=== PATIENT | female | born 1990 ===

== ENCOUNTER 2017-11-12 11:12 | Emergency (ER) | payer MEDICAID ==
[2017-11-12 11:25] VITALS: RESP 18; TEMP 98.2
[2017-11-12 11:31] VITALS: BMI 30.2
--- NOTE | 2017-11-12 11:31 | ED PDOC ---
Arrival/HPI - General Time Seen by Provider: 11/12/17 11:15 Historian: Patient - History of Present Illness Narrative History of Present Illness (Text): 11/12/17 12:00 27 year old female, whose PMH includes hyperthyroidism, asthma, depression, and hernia, who presents to the emergency department complaining of worsening discomfort with umbilical hernia that has been gradually growing. Patient associates her symptom with nausea and diarrhea and the pain is worse with movement. Patient notes 10 months ago she was scheduled for surgery to remove the hernia, but they found out she was . She states her LMP was 2 days ago and her last BM was today, non dark, non bloody. Her BM was after her pain occured Patient denies fever, shortness of breath, chest pain, dizziness, vomiting, dysuria, or other complaints. Patient denies any SI or HI. PMD: None Surgeon: None in the area 11/12/17 15:35 Symptom Onset: Gradual Symptom Course: Worsening Activities at Onset: Rest Context: Home Past Medical History - Provider Review Nursing Documentation Reviewed: Yes Family/Social History - Physician Review Nursing Documentation Reviewed: Yes Family/Social History: Unknown Family HX Allergies/Home Meds Allergies/Adverse Reactions: Allergies No Known Allergies Allergy (Verified 11/12/17 12:04) Home Medications: Home Meds Medication Instructions Recorded Confirmed Gabapentin [Neurontin] 100 mg PO DAILY 11/12/17 11/12/17 Gabapentin [Neurontin] 200 mg PO DIN 11/12/17 11/12/17 Gabapentin [Neurontin] 200 mg PO HS 11/12/17 11/12/17 Sertraline [Zoloft] 100 mg PO DAILY 11/12/17 11/12/17 lamoTRIgine [Lamictal] 75 mg PO DAILY 11/12/17 11/12/17 Review of Systems - Review of Systems Constitutional: absent: Fevers Respiratory: absent: SOB Cardiovascular: absent: Chest Pain Gastrointestinal: Abdominal Pain (umbilical hernia ), Diarrhea, Nausea. absent : Vomiting Genitourinary Female: absent: Dysuria Musculoskeletal: absent: Back Pain Skin: absent: Rash Neurological: absent: Headache, Dizziness Endocrine: absent: Diaphoresis Physical Exam Vital Signs Reviewed: Yes Vital Signs Temp Pulse Resp BP Pulse Ox 11/12/17 14:13 69 18 135/69 99 11/12/17 12:42 75 18 138/74 99 11/12/17 11:24 98.2 F 78 18 141/87 99 Temperature: Afebrile Blood Pressure: Normal Pulse: Regular Respiratory Rate: Normal Appearance: Positive for: Well-Appearing, Non-Toxic, Comfortable Pain Distress: None Mental Status: Positive for: Alert and Oriented X 3 - Systems Exam Head: Present: Atraumatic, Normocephalic Pupils: Present: PERRL Extroacular Muscles: Present: EOMI Conjunctiva: Present: Normal Respiratory/Chest: Present: Clear to Auscultation, Good Air Exchange. No: Respiratory Distress, Accessory Muscle Use, Wheezes, Rales, Retracting, Rhonchi Cardiovascular: Present: Regular Rate and Rhythm, Normal S1, S2. No: Murmurs Abdomen: Present: Normal Bowel Sounds, Hernias (reducible umbilical hernia, no erythema or skin changes). No: Tenderness, Distention, Peritoneal Signs, Rebound, Guarding Neurological: Present: GCS=15, CN II-XII Intact, Speech Normal Skin: Present: Warm, Dry, Normal Color. No: Rashes Psychiatric: Present: Alert, Oriented x 3, Normal Insight, Normal Concentration Medical Decision Making ED Course and Treatment: 11/12/17 Impression: 27 year old female with reducible umbilical hernia complaining of worsening and growing hernia since over 10 months ago. Easily reducible hernia w/ out vomiting , constipation. No indication of strangulated or incarcerated hernia. Will likely image for surgical followup. Plan: -- Labs -- CT abdomen and pelvis -- Reassess and disposition Progress Notes: Labs largely unremarkable Pain improved, no pain free, tolerating clears, no vomiting. CT w/ fat hernia @ 25mm. Given return indications, discs and followup 11/12/17 15:39 - Lab Interpretations Lab Results: 11/12/17 12:45 11/12/17 12:45 Lab Results 11/12/17 12:45: Lactic Acid 0.9 11/12/17 12:45: Sodium 142, Potassium 4.7, Chloride 104, Carbon Dioxide 25, Anion Gap 18, BUN 12, Creatinine 0.6 L, Est GFR ( Amer) > 60, Est GFR ( Non-Af Amer) > 60, Random Glucose 93, Calcium 9.7, Total Bilirubin 0.5, AST 34, ALT 29, Alkaline Phosphatase 82, Total Protein 8.7 H, Albumin 4.9 H, Globulin 3.8, Albumin/Globulin Ratio 1.3, Lipase 78 11/12/17 12:45: WBC 8.0, RBC 4.84, Hgb 14.4, Hct 43.3, MCV 89.5, MCH 29.8, MCHC 33.3, RDW 13.2, Plt Count 286, MPV 10.1, Gran % 58.0, Lymph % (Auto) 33.3, [place] % (Auto) 6.2 H, Eos % (Auto) 2.0, Baso % (Auto) 0.5, Gran # 4.61, Lymph # (Auto ) 2.7, [place] # (Auto) 0.5, Eos # (Auto) 0.2, Baso # (Auto) 0.04 I have reviewed the lab results: Yes - RAD Interpretation Radiology Orders: 11/12/17 12:10 ABD PELVIS PO & IV CONTRAST [CT] Stat Septic Tank Servicer: Radiologist - Medication Orders Current Medication Orders: Sodium Chloride (Sodium Chloride 0.9%) 1,000 mls @ 100 mls/hr IV .Q10H KENROY Last Admin: 11/12/17 12:24 Dose: 100 mls/hr eMAR Start Stop Document 11/12/17 12:24 LA (Rec: 11/12/17 12:25 LA [id number]) Intravenous Solution Start Date 11/12/17 Start Time 12:24 Discontinued Medications Ibuprofen (Motrin Tab) 600 mg PO STAT STA Stop: 11/12/17 12:11 Last Admin: 11/12/17 12:24 Dose: 600 mg MAR Pain/Vitals Document 11/12/17 12:24 LA (Rec: 11/12/17 12:24 LA [id number]) Pain Reassessment Is This A Pain ReAssessment? No Sleep Is patient sleeping during reassessment? No Presence of Pain Presence of Pain Yes Pain Scale Used Pain Scale Used Numeric Location Pain Location Body Site Abdomen Description Constant Intensity 3 Scale Used Numeric Ondansetron HCl (Zofran Inj) 4 mg IVP STAT STA Stop: 11/12/17 12:10 Last Admin: 11/12/17 12:24 Dose: 4 mg IVP Administration Document 11/12/17 12:24 LA (Rec: 11/12/17 12:24 LA [id number]) Charges for Administration # of IVP Administrations 1 - Scribe Statement The provider has reviewed the documentation as recorded by the Kyree Harry Provider Srinie Attestation: All medical record entries made by the Elisabetibe were at my direction and personally dictated by me. I have reviewed the chart and agree that the record accurately reflects my personal performance of the history, physical exam, medical decision making, and the department course for this patient. I have also personally directed, reviewed, and agree with the discharge instructions and disposition. Disposition/Present on Arrival - Present on Arrival Any Indicators Present on Arrival: No History of DVT/PE: No History of Uncontrolled Diabetes: No Urinary Catheter: No History of Decub. Ulcer: No History Surgical Site Infection Following: None - Disposition Have Diagnosis and Disposition been Completed?: Yes Diagnosis: Umbilical hernia Disposition: HOME/ ROUTINE Disposition Time: 15:00 Patient Plan: Discharge Condition: GOOD Additional Instructions: FOLLOW UP WITH YOUR PRIMARY CARE DOCTOR AND THE SURGICAL DOCTOR. KRZYSZTOF SHEPHERD, thank you for letting us take care of you today. Your provider was Juan Jiménez and you were treated for HERNIA. The emergency medical care you received today was directed at your acute symptoms. If you were prescribed any medication, please fill it and take as directed. It may take several days for your symptoms to resolve. Return to the Emergency Department if your symptoms worsen, do not improve, or if you have any other problems. Please contact your doctor or call one of the physicians/clinics you have been referred to that are listed on the Patient Visit Information form that is included in your discharge packet. Bring any paperwork you were given at discharge with you along with any medications you are taking to your follow up visit. Our treatment cannot replace ongoing medical care by a primary care provider outside of the emergency department. Thank you for allowing the [facility] hospital team to be part of your care today. If you had an X-Ray or CT scan: A Radiologist will review the ED reading if any change in treatment is needed we will contact you. If you had a blood, urine, or wound culture: It will take several days for the results, if any change in treatment is needed we will contact you. If you had an STI test: It will take 48 hours for the results. Please call after 1 week if you have not heard back. Referrals: Antonia Oliveira MD [Primary Care Provider] - Follow up with primary Julius Cunha MD [Staff Provider] - Follow up with primary [facility] [Outside] - Follow up with primary
[2017-11-12] MEDS ORDERED: Sodium Chloride 0.9% 1,000 ML IV SCH (12:15)
[2017-11-12] MEDS ORDERED: Iohexol 240 (50 ml) ONE (12:17)
[2017-11-12 13:03] LABS: BASO # 0.04 K/mm3 (0.0-2.0); BASO % 0.5 % (0.0-3.0); EOS # 0.2 (0.0-0.7); GRAN # 4.61 (1.4-6.5); HEMOGLOBIN 14.4 g/dL (12.0-16.0); LYMPH # 2.7 (1.2-3.4); LYMPH % 33.3 % (22.0-35.0); MEAN CELL VOLUME 89.5 fl (80.0-105.0); MEAN CORPUSCULAR HEMOGLOBIN 29.8 pg (25.0-35.0); MEAN CORPUSCULAR HGB CONC 33.3 g/dl (31.0-37.0); MEAN PLATELET VOLUME 10.1 fl (7.0-11.0); MONO # 0.5 (0.1-0.6); MONO % 6.2 % (1.0-6.0); RBC 4.84 10^6/uL (3.5-6.1); RED CELL DISTRIBUTION WIDTH 13.2 % (11.5-14.5)
[2017-11-12 13:09] LABS: ALB/GLOB RATIO 1.3 (1.1-1.8); ALBUMIN 4.9 g/dL (3.0-4.8); ALT/SGPT 29 U/L (7-56); AST/SGOT 34 U/L (14-36); BLOOD UREA NITROGEN 12 mg/dL (7-21); CALCIUM 9.7 mg/dL (8.4-10.5); GFR AFRICAN-AMERICAN > 60; GFR NON-AFRICAN AMERICAN > 60; LIPASE 78 U/L (23-300)
[2017-11-12] MEDS ORDERED: Iohexol 350 MG/100 ML VIAL ONE (14:18)
--- NOTE | 2017-11-12 15:25 | CT ---
Date of service: 11/12/2017 PROCEDURE: CT Abdomen and Pelvis with contrast HISTORY: worsening umbilical hernia COMPARISON: None. TECHNIQUE: Contrast dose: 100 cc of Omni 350 Radiation dose: Total exam DLP = 502 mGy-cm. This CT exam was performed using one or more of the following dose reduction techniques: Automated exposure control, adjustment of the mA and/or kV according to patient size, and/or use of iterative reconstruction technique. FINDINGS: LOWER THORAX: Unremarkable. LIVER: Unremarkable. No gross lesion or ductal dilatation. GALLBLADDER AND BILE DUCTS: Unremarkable. PANCREAS: Unremarkable. No gross lesion or ductal dilatation. SPLEEN: Unremarkable. ADRENALS: Unremarkable. No mass. KIDNEYS AND URETERS: Unremarkable. No hydronephrosis. No solid mass. There is atrophy and scarring of the right kidney VASCULATURE: Unremarkable. No aortic aneurysm. BOWEL: Unremarkable. No obstruction. No gross mural thickening. APPENDIX: Normal appendix. PERITONEUM: There is a large fat containing umbilical hernia. The hernia defect measures 25 mm. The herniated fat measures 28 x 43 mm LYMPH NODES: Unremarkable. No enlarged lymph nodes. BLADDER: Unremarkable. REPRODUCTIVE: Unremarkable. BONES: No acute fracture. OTHER FINDINGS: None. IMPRESSION: There is a large fat containing umbilical hernia. The hernia defect measures 25 mm. The herniated fat measures 28 x 43 mm
[2017-11-12 15:57] VITALS: BP 132/64; PULSE 71; O2SAT 100
== END 2017-11-12 16:10 | disposition home or self-care (01) ==
LOC: ED 11:12
DX: K42.9 Umbilical hernia without obstruction or gangrene (principal)
CPT/HCPCS: 74177; 80053; 83605; 83690; 85025; 96374; 99284; J2405; J7030; Q9966; Q9967

== ENCOUNTER 2017-12-16 23:51 | Emergency (ER) | payer MEDICAID ==
[2017-12-16 23:52] VITALS: BMI 30.2
[2017-12-17 00:15] VITALS: RESP 18; O2SAT 98
--- NOTE | 2017-12-17 00:16 | ED PDOC ---
Arrival/HPI - General Time Seen by Provider: 12/16/17 23:55 Historian: Patient - History of Present Illness Narrative History of Present Illness (Text): 12/17/17 00:13 Cristina Moses is a 27 year old female, whose past medical history includes hyperthyroidism, asthma, depression, and umbilical hernia, who presented to the Emergency department for dysuria. Patient states she has been having dysuria for the past few days no vaginal discharge but applied [id number] Monistat yesterday. Patient states she noted possible blisters to her vaginal area.Patient is sexually active. Patient denies any abdominal pain, nausea, vomiting, diarrhea, hematuria, back pain, fever, chills, or any other complaints. Symptom Onset: Gradual Symptom Course: Unchanged Activities at Onset: Light Context: Home Past Medical History - Provider Review Nursing Documentation Reviewed: Yes - Pulmonary Hx Asthma: Yes - Endocrine/Metabolic Hx Hyperthyroidism: Yes (2014) - Hematological/Oncological Hx Blood Transfusions: Yes (after a dog bite, blood transfusion was needed) - Psychiatric Hx Anxiety: Yes Hx Bipolar Disorder: Yes Hx Substance Use: No - Anesthesia Hx Anesthesia: No Family/Social History - Physician Review Nursing Documentation Reviewed: Yes Family/Social History: Unknown Family HX Smoking Status: Current Some Days Smoker Hx Alcohol Use: Yes Hx Substance Use: No Allergies/Home Meds Allergies/Adverse Reactions: Allergies No Known Allergies Allergy (Verified 12/17/17 00:15) Review of Systems - Physician Review All systems were reviewed & negative as marked: Yes - Review of Systems Constitutional: Normal. absent: Fevers Eyes: Normal ENT: Normal Respiratory: Normal. absent: SOB, Cough Cardiovascular: Normal. absent: Chest Pain Gastrointestinal: Normal. absent: Abdominal Pain, Diarrhea, Nausea, Vomiting Genitourinary Female: absent: Frequency, Hematuria, Urine Output Changes Musculoskeletal: Normal. absent: Back Pain, Neck Pain Skin: Normal. absent: Rash Neurological: Normal. absent: Headache, Dizziness Endocrine: Normal Hemo/Lymphatic: Normal Psychiatric: Normal Physical Exam Vital Signs Reviewed: Yes Vital Signs Temp Pulse Resp BP Pulse Ox 12/17/17 01:50 98.0 F 75 18 128/69 98 12/17/17 00:10 98 F 73 18 138/86 98 Temperature: Afebrile Blood Pressure: Normal Pulse: Regular Respiratory Rate: Normal Appearance: Positive for: Well-Appearing, Non-Toxic, Comfortable Pain Distress: None Mental Status: Positive for: Alert and Oriented X 3 - Systems Exam Head: Present: Atraumatic, Normocephalic Pupils: Present: PERRL Extroacular Muscles: Present: EOMI Conjunctiva: Present: Normal Mouth: Present: Moist Mucous Membranes Neck: Present: Normal Range of Motion Respiratory/Chest: Present: Clear to Auscultation, Good Air Exchange. No: Respiratory Distress, Accessory Muscle Use Cardiovascular: Present: Regular Rate and Rhythm, Normal S1, S2. No: Murmurs Abdomen: No: Tenderness, Distention, Peritoneal Signs Genitourinary/Pelvic Exam: Present: Normal External Genitalia, Vaginal Lesions ( scattered labial vesicles). No: Vaginal Discharge, Vaginal Bleeding, Odor Back: Present: Normal Inspection Upper Extremity: Present: Normal Inspection. No: Cyanosis, Edema Lower Extremity: Present: Normal Inspection. No: Edema Neurological: Present: GCS=15, CN II-XII Intact, Speech Normal, Motor Func Grossly Intact, Normal Sensory Function Skin: Present: Warm, Dry, Normal Color. No: Rashes Psychiatric: Present: Alert, Oriented x 3, Normal Insight, Normal Concentration Medical Decision Making ED Course and Treatment: 12/17/17 00:13 Impression: 27 year old female complaining of dysuria. Plan: -- Urinalysis -- Reassess and disposition Prior Visits: Notes and results from previous visits were reviewed. On 11/12/2017, pt was seen in the Emergency department for worsening discomfort to umbilical hernia, nausea, and diarrhea. Pt was discharged home. Progress Notes: 12/17/17 01:34 On re-evaluation, patient is in no acute distress. I have discussed the results and plan with the patient, who expresses understanding. Patient in agreement with plan to be discharged home. Patient is stable for discharge. Patient was instructed to follow up with physician or return if symptoms worsen or new concerning symptoms arise. - Lab Interpretations Lab Results: Lab Results 12/17/17 00:27: Urine Color Yellow, Urine Appearance Sl cloudy, Urine pH 6.5, Ur Specific [place] >= 1.030, Urine Protein Trace H, Urine Glucose (UA) Negative , Urine Ketones Negative, Urine Blood Negative, Urine Nitrate Negative, Urine Bilirubin Negative, Urine Urobilinogen 1.0 H, Ur Leukocyte Esterase Small H, Urine RBC 0 - 2, Urine WBC 5 - 10, Ur Epithelial Cells 4 - 5, Urine Bacteria Mod , Urine HCG, Qual Negative I have reviewed the lab results: Yes - Medication Orders Current Medication Orders: Discontinued Medications Cephalexin Monohydrate (Keflex) 500 mg PO ONCE STA PRN Reason: Protocol Stop: 12/17/17 01:32 Last Admin: 12/17/17 01:44 Dose: 500 mg Valacyclovir HCl (Valtrex) 1 gm PO STAT STA PRN Reason: Protocol Stop: 12/17/17 01:33 Last Admin: 12/17/17 01:44 Dose: 1 gm - Scribe Statement The provider has reviewed the documentation as recorded by the Kyree Reid Provider Scribe Attestation: All medical record entries made by the Scribe were at my direction and personally dictated by me. I have reviewed the chart and agree that the record accurately reflects my personal performance of the history, physical exam, medical decision making, and the department course for this patient. I have also personally directed, reviewed, and agree with the discharge instructions and disposition. Disposition/Present on Arrival - Present on Arrival Any Indicators Present on Arrival: No History of DVT/PE: No History of Uncontrolled Diabetes: No Urinary Catheter: No History Surgical Site Infection Following: None - Disposition Have Diagnosis and Disposition been Completed?: Yes Diagnosis: UTI (urinary tract infection), Genital herpes Disposition: HOME/ ROUTINE Disposition Time: :34 Patient Plan: Discharge Condition: STABLE Discharge Instructions (ExitCare): Urinary Tract Infection, Adult (DC), Genital Herpes (DC) Additional Instructions: Take medication as prescribed/follow up with your home health billing specialist/no sexual intercourse until seen by your doctor Prescriptions: Cephalexin [cephalexin] 500 mg PO BID #6 cap Valacyclovir HCl [Valtrex] 1 gm PO BID #20 tablet Referrals: Antonia Oliveira MD [Primary Care Provider] - Follow up with primary Forms: [employer] (Armenian)
[2017-12-17 01:13] LABS: PH,URINE 6.5 (4.7-8.0); URINE BILIRUBIN NEGATIVE (NEGATIVE); URINE BLOOD NEGATIVE (NEGATIVE); URINE GLUCOSE (UA) NEGATIVE (NEGATIVE); URINE LEUKOCYTE ESTERASE SMALL Leu/uL (NEGATIVE); URINE PROTEIN TRACE mg/dL (<30 mg/dL)
[2017-12-17 01:18] LABS: URINE APPEARANCE SL CLOUDY (CLEAR); URINE COLOR YELLOW (YELLOW)
[2017-12-17 01:19] LABS: HCG,QUALITATIVE URINE NEGATIVE (NEGATIVE)
[2017-12-17 01:29] LABS: URINE RBC 0 - 2 /hpf (0-2)
[2017-12-17 01:30] LABS: URINE BACTERIA MOD (NEG)
[2017-12-17 03:17] VITALS: BP 128/69; PULSE 75; TEMP 98
== END 2017-12-17 01:50 | disposition home or self-care (01) ==
LOC: ED 23:51
DX: N39.0 Urinary tract infection, site not specified (principal); A60.00 Herpesviral infection of urogenital system, unspecified